=== PATIENT | female | born 1980 | race Caucasian/White ===

== ENCOUNTER 2018-11-15 22:06 | Emergency (ER) | payer OTHER ==
[~2018-11-15] VITALS: Ht 165.1 cm; Wt 98.3 kg
[~2018-11-15 22:06] MED LIST: AMOX-291 PO; BUME1TAB21 PO; OMEP-110 PO
[2018-11-15 22:08] VITALS: BP 143/87
[2018-11-15] MEDS ORDERED: KETOROLAC 30 MG/1 ML IVPush ONE (22:30)
[2018-11-15] MEDS ORDERED: DEXAMETHASONE 10 MG in SODIUM CHLORIDE 0.9% 50 ML IV SCH (22:30)
[2018-11-15] MEDS ORDERED: DEXAMETHASONE 4 MG/ML, 5ML ONE (22:44)
[2018-11-15] MEDS ORDERED: KETOROLAC 30 MG/1 ML ONE (22:44)
[2018-11-15 22:59] LABS: MD YES
[2018-11-15 23:02] LABS: MEAN CORPUSCULAR HEMOGLOBIN 20.7 pg (27.0-34.8); MEAN CORPUSCULAR VOLUME 69.3 fL (80-100); MEAN PLATELET VOLUME 8.6 fL (7.4-10.4); PLATELET COUNT 288 x10^3/uL (130-400); RED BLOOD COUNT 4.12 x10^6/uL (3.82-5.3); RED CELL DISTRIBUTION WIDTH 19.8 % (9.6-15.2)
[2018-11-15 23:09] LABS: ANION GAP 7 mmol/L (5-15); CALCIUM 8.5 mg/dL (8.5-10.1); CHLORIDE 107 mmol/L (98-107)
[2018-11-15 23:15] LABS: ALANINE AMINOTRANSFERASE 27 U/L (12-78); ALKALINE PHOSPHATASE 77 U/L (45-117); BILIRUBIN,TOTAL 0.2 mg/dL (0.2-1.0); CREATININE 0.45 mg/dL (0.55-1.02)
[2018-11-15 23:28] LABS: <PLATELET ESTIMATE> ADEQUATE; <PLT MORPHOLOGY> NORMAL PLT MORPH; ANISOCYTOSIS 1+; HYPOCHROMIA 1+; LYMPH#(MANUAL) 2.59 x10^3/uL (1-3.4); LYMPHS% (MANUAL) 37 % (22-44); MICROCYTOSIS 1+; MONOS#(MANUAL) 0.63 x10^3/uL (0.3-2.7); MONOS% (MANUAL) 9 % (2-9); OVALOCYTES 1+; POLYCHROMASIA 1+; SEG#(MANUAL) 3.78 x10^3/uL (1.8-6.8); SEGS% (MANUAL) 54 % (42-75)
[2018-11-15 23:46] LABS: MEAN CORPUSCULAR HGB CONC 29.8 g/dL (32.4-35.8)
[2018-11-15] MEDS ORDERED: OMNIPAQUE 350 MG/ML, 100ML BOTTLE ONE (23:49)
== END 2018-11-16 00:32 | disposition home or self-care (01) ==
LOC: ED 22:53
DX: J02.9 Acute pharyngitis, unspecified (principal); D64.9 Anemia, unspecified
CPT/HCPCS: 36415; 70491; 80053; 84703; 85025; 87081; 87880; 96365; 96375; 99284; J1100; J1885; Q9967

== ENCOUNTER 2019-01-25 03:14 | Emergency (ER) | payer OTHER ==
[~2019-01-25] VITALS: Ht 165.1 cm; Wt 102.1 kg
--- NOTE | 2019-01-25 03:28 | NUR ---
first contact with pt. pt c/o right sided abd/flank pain with n/d since 2am today. pt's aox4. resps even and unlabored. bp/spo2 monitors in place. call light within reach. awaiting edmd assessment at this time.
[2019-01-25] MEDS ORDERED: ONDANSETRON 2MG/ML, 2ML ONE ×2 (03:43→04:34)
[2019-01-25] MEDS ORDERED: MORPHINE SULFATE 4 MG/ML, 1ML ONE (03:43)
--- NOTE | 2019-01-25 03:50 | NUR ---
pt amb to br and back to room with steady gait. ua sent.
[2019-01-25] MEDS ORDERED: MORPHINE SULFATE 4 MG/ML, 1ML IVPush ONE (04:00)
[2019-01-25] MEDS ORDERED: ONDANSETRON 2MG/ML, 2ML IVPush ONE ×2 (04:00→05:00)
--- NOTE | 2019-01-25 04:02 | NUR ---
pt medicated per emar. pt tolerated well. pt's aox4. resps even and unlabored.
[2019-01-25] MEDS ORDERED: SERT100T32 PO (04:15)
[2019-01-25 04:17] LABS: MEAN CORPUSCULAR HEMOGLOBIN 29.2 pg (27.0-34.8); MEAN CORPUSCULAR HGB CONC 33.3 g/dL (32.4-35.8); MEAN CORPUSCULAR VOLUME 87.8 fL (80-100); PLATELET COUNT 251 x10^3/uL (130-400); RED CELL DISTRIBUTION WIDTH 29.3 % (9.6-15.2)
[2019-01-25 04:22] LABS: HCG UR SG 1.028 (1.003-1.030); MICROSCOPIC NOT IND
[2019-01-25 04:23] LABS: CULTURE INDICATED? NO
[2019-01-25 04:24] LABS: ALBUMIN 3.9 g/dL (3.4-5.0); ANION GAP 4 mmol/L (5-15); CALCIUM 8.2 mg/dL (8.5-10.1); CHLORIDE 111 mmol/L (98-107)
[2019-01-25 04:28] LABS: ALANINE AMINOTRANSFERASE 78 U/L (12-78); ALKALINE PHOSPHATASE 111 U/L (45-117); BILIRUBIN,TOTAL 0.4 mg/dL (0.2-1.0); CREATININE 0.51 mg/dL (0.55-1.02); TOTAL PROTEIN 7.5 g/dL (6.4-8.2)
[2019-01-25] MEDS ORDERED: KETOROLAC 30 MG/1 ML IM ONE (04:30)
[2019-01-25] MEDS ORDERED: KETOROLAC 30 MG/1 ML ONE (04:34)
--- NOTE | 2019-01-25 04:41 | NUR ---
PT MEDICATED PER EMAR FOR PAIN. PT TOLERATED WELL.
--- NOTE | 2019-01-25 05:00 | NUR ---
pt's pain level is 5/10 at this time. pt's aox4. resps even and unlabored.
[2019-01-25 05:04] LABS: BASOPHILS # (AUTO) 0.04 x10^3/uL (0-0.1); BASOPHILS % (AUTO) 1 % (0-1); EOSINOPHILS # (AUTO) 0.17 x10^3/uL (0-0.4); EOSINOPHILS % (AUTO) 2 % (1-7); LYMPHOCYTES % (AUTO) 29 % (22-44); MD MORPH REVIEW ONLY; MONOCYTES % (AUTO) 8 % (2-9); NEUTROPHILS # (AUTO) 5.15 x10^3/uL (1.8-6.8); NEUTROPHILS % (AUTO) 60 % (42-75)
[2019-01-25 05:17] LABS: <PLATELET ESTIMATE> ADEQUATE; <PLT MORPHOLOGY> NORMAL PLT MORPH; ANISOCYTOSIS 2+; HYPOCHROMIA 1+
--- NOTE | 2019-01-25 05:18 | NUR ---
pt back to room from ct.
[2019-01-25] MEDS ORDERED: OMNIPAQUE 350 MG/ML, 100ML BOTTLE ONE (05:40)
--- NOTE | 2019-01-25 06:14 | NUR ---
pt resting in [facility]. pt's aox4. resps even and unlabored. bp/spo2 monitors in place. call light within reach. pt denies any needs/concerns at this time.
--- NOTE | 2019-01-25 06:47 | NUR ---
report given to elizabeth chávez.
--- NOTE | 2019-01-25 06:47 | NUR ---
Assumed c/o pt from [facility].
--- NOTE | 2019-01-25 07:04 | NUR ---
US called to inquire about delay in pelvic US. No answer in dept, main radiology # called, states they will check w/ US.
--- NOTE | 2019-01-25 07:10 | NUR ---
US here for pt exam.
--- NOTE | 2019-01-25 07:39 | NUR ---
Back from US. Pain free, VSS, results pending.
[2019-01-25 07:40] VITALS: BP 94/48
== END 2019-01-25 08:17 | disposition home or self-care (01) ==
LOC: ED 04:06
DX: R10.31 Right lower quadrant pain (principal); R10.2 Pelvic and perineal pain
CPT/HCPCS: 36415; 74177; 76830; 80053; 81003; 81025; 83690; 85025; 96372; 96374; 96375; 96376; 99284; J1885; J2405; Q9967